=== PATIENT | female | born 1965 | race Caucasian/White ===

== ENCOUNTER 2017-07-21 17:14 | Inpatient (IN) | payer OTHER ==
[~2017-07-21] VITALS: Ht 165.1 cm; Wt 77.0 kg
[~2017-07-21 17:14] MED LIST: BP MED PO; CALCIUM 500 MG1 EACH PO; HYZAAR 50-121 TABLET PO; STRIBILD TABLE1 EACH PO
[2017-07-21 18:09] LABS: BASOPHIL (%) 0.2 % (0-1); EOSINOPHIL (%) 1.3 % (0-5); EOSINOPHIL COUNT 0.1 K/uL (0-0.3); HEMATOCRIT 33.3 % (36.0-46.0); HEMOGLOBIN 11.9 G/DL (11.9-15.5); IMMATURE GRANULOCYTE (%) 0.2 % (0.0-0.7); LYMPHOCYTE (%) 25.8 % (15-42); LYMPHOCYTE COUNT 1.2 K/uL (1.0-2.8); MCH 31.6 PG (29.0-34.0); MCHC 35.7 G/DL (30.0-36.0); MCV 88.3 FL (83-99); MONOCYTE COUNT 0.5 K/uL (0-0.8); NEUTROPHIL (%) 60.5 % (45-76); NEUTROPHIL COUNT 2.7 K/uL (1.8-6.4); PLATELET COUNT 156 K/uL (156-360); RBC DIS.WIDTH-CV 13.3 % (11.8-14.6); RED BLOOD COUNT 3.77 M/uL (3.80-5.20); WHITE BLOOD COUNT 4.5 K/uL (4.1-10.2)
[2017-07-21 18:17] LABS: CHLORIDE 107 mEq/L (99-109); POTASSIUM 3.2 mEq/L (3.7-5.4); SODIUM 138 mEq/L (136-147)
[2017-07-21 18:18] LABS: GLUCOSE 99 mg/dL (70-99)
[2017-07-21 18:22] LABS: CREATININE 7.7 mg/dL (0.6-1.3); GFR ESTIMATE (CALCULATED) 6 mL/min/
[2017-07-21 18:23] LABS: UREA NITROGEN (BUN) 58 mg/dL (9-23)
[2017-07-21 21:21] LABS: CREATINE KINASE 141 IU/L (1-294)
[2017-07-21] MEDS ORDERED: LOSARTAN-HCTZ1 EACH PO (21:26)
[2017-07-21] MEDS ORDERED: PROMETHAZINE HC25 M1 PO (21:26)
[2017-07-21] MEDS ORDERED: ATRIPLA TABLET1 EACH PO (21:27)
[2017-07-21] MEDS ORDERED: SPIRONOLACTONE25 MG PO (21:27)
[2017-07-21] MEDS ORDERED: RABEPRAZOLE SOD20 MG PO (21:27)
[2017-07-21 23:47] LABS: TOTAL PROTEIN 6.1 g/dL (6.4-8.3)
[2017-07-21 23:49] LABS: TOTAL BILIRUBIN 0.4 mg/dL (0.0-1.0)
[2017-07-21 23:50] LABS: ALKALINE PHOSPHATASE 85 IU/L (3-129)
[2017-07-21 23:53] LABS: ALT (GPT) 16 IU/L (3-49); AST (GOT) 30 IU/L (2-34); DIRECT BILIRUBIN 0.1 mg/dL (0.0-0.3)
[2017-07-21 23:54] LABS: URIC ACID 4.2 mg/dL (3.1-9.2)
[2017-07-21 23:56] LABS: APPEARANCE CLEAR ((CLEAR)); BILIRUBIN NEGATIVE; BLOOD SMALL; COLOR STRAW ((YELLOW)); GLUCOSE (STRIP) >=500; KETONES NEGATIVE; LEUKOCYTES NEGATIVE; NITRITE NEGATIVE; PROTEIN (STRIP) 100; SPECIFIC GRAVITY 1.003 (1.000-1.030); UROBILINOGEN 0.2 MG/DL (0.2-1.0)
[2017-07-22 00:08] LABS: BACTERIA RARE /HPF; EPITHELIAL CELLS RARE /HPF; MUCUS TRACE /LPF; RED BLOOD CELLS 0-5 /HPF (0-5); WHITE BLOOD CELLS 0-5 /HPF (0-5)
[2017-07-22 00:26] VITALS: BP 111/67
[2017-07-22 02:40] LABS: CHLORIDE 112 mEq/L (99-109); POTASSIUM 3.1 mEq/L (3.7-5.4); SODIUM 140 mEq/L (136-147)
[2017-07-22 02:42] LABS: GLUCOSE 98 mg/dL (70-99)
[2017-07-22 02:44] LABS: UR CREATININE CONCENTRATION 38.6 MG/DL
[2017-07-22 02:45] LABS: CREATININE 7.6 mg/dL (0.6-1.3); GFR ESTIMATE (CALCULATED) 6 mL/min/
[2017-07-22 02:46] LABS: UREA NITROGEN (BUN) 53 mg/dL (9-23)
[2017-07-22 06:41] LABS: HEMOGLOBIN 10.3 G/DL (11.9-15.5); MCH 31.6 PG (29.0-34.0); MCHC 35.5 G/DL (30.0-36.0); PLATELET COUNT 144 K/uL (156-360); RBC DIS.WIDTH-CV 13.4 % (11.8-14.6); RBC DIS.WIDTH-SD 43.5 % (39-53); RED BLOOD COUNT 3.26 M/uL (3.80-5.20); WHITE BLOOD COUNT 3.7 K/uL (4.1-10.2)
[2017-07-22 07:16] LABS: ALBUMIN 2.8 G/DL (3.2-4.8); CHLORIDE 113 MEQ/L (99-109); CREATININE 7.2 MG/DL (0.6-1.3); GFR ESTIMATE (CALCULATED) 6 mL/min/; GLUCOSE 97 mg/dL (70-99); PHOSPHORUS 3.6 mg/dL (2.5-4.9); POTASSIUM 3.7 MEQ/L (3.7-5.4); SODIUM 139 MEQ/L (136-147); UREA NITROGEN (BUN) 50 mg/dL (9-23)
[2017-07-22 08:23] VITALS: BP 116/72
[2017-07-22 13:41] LABS: URIC ACID 4.3 mg/dL (3.1-9.2)
[2017-07-22 15:29] VITALS: BP 121/70
[2017-07-22 22:59] VITALS: BP 128/72
[2017-07-23 07:01] LABS: HEMATOCRIT 28.8 % (36.0-46.0); MCH 31.2 PG (29.0-34.0); MCHC 34.7 G/DL (30.0-36.0); MCV 89.7 FL (83-99); PLATELET COUNT 143 K/uL (156-360); RBC DIS.WIDTH-CV 13.2 % (11.8-14.6); RBC DIS.WIDTH-SD 43.8 % (39-53); RED BLOOD COUNT 3.21 M/uL (3.80-5.20); WHITE BLOOD COUNT 3.3 K/uL (4.1-10.2)
[2017-07-23 07:23] LABS: ALBUMIN 2.9 G/DL (3.2-4.8); CHLORIDE 114 MEQ/L (99-109); CREATININE 7.3 MG/DL (0.6-1.3); GFR ESTIMATE (CALCULATED) 6 mL/min/; GLUCOSE 95 mg/dL (70-99); PHOSPHORUS 3.3 mg/dL (2.5-4.9); POTASSIUM 3.8 MEQ/L (3.7-5.4); SODIUM 142 MEQ/L (136-147); UREA NITROGEN (BUN) 41 mg/dL (9-23)
[2017-07-23 07:34] VITALS: BP 113/63
[2017-07-23 12:34] LABS: APPEARANCE SL.HAZY ((CLEAR)); BILIRUBIN NEGATIVE; BLOOD MODERATE; COLOR STRAW ((YELLOW)); GLUCOSE (STRIP) 150; KETONES NEGATIVE; LEUKOCYTES NEGATIVE; NITRITE NEGATIVE; PROTEIN (STRIP) 100; SPECIFIC GRAVITY 1.006 (1.000-1.030); UROBILINOGEN 0.2 MG/DL (0.2-1.0)
[2017-07-23 12:55] LABS: URINE TOTAL PROTEIN 132 MG/DL (0-10)
[2017-07-23 13:22] LABS: BACTERIA RARE /HPF; EPITHELIAL CELLS RARE /HPF; MUCUS TRACE /LPF; RED BLOOD CELLS 0-5 /HPF (0-5); WHITE BLOOD CELLS 0-5 /HPF (0-5)
[2017-07-23 16:17] VITALS: BP 114/62
[2017-07-24 00:41] VITALS: BP 141/76
[2017-07-24 06:23] LABS: INTER. NORMALIZED RATIO 1.1
[2017-07-24 06:42] LABS: C4 COMPLEMENT 15 MG/DL (10-40)
[2017-07-24 07:09] LABS: CHLORIDE 117 MEQ/L (99-109); CREATININE 7.6 MG/DL (0.6-1.3); GFR ESTIMATE (CALCULATED) 6 mL/min/; GLUCOSE 100 mg/dL (70-99); PHOSPHORUS 3.2 mg/dL (2.5-4.9); POTASSIUM 3.9 MEQ/L (3.7-5.4); SODIUM 145 MEQ/L (136-147); UREA NITROGEN (BUN) 36 mg/dL (9-23)
[2017-07-24 07:47] VITALS: BP 115/62
[2017-07-24 12:23] LABS: HEPATITIS B SURFACE ANTIGEN Nonreactive; HEPATITIS C ANTIBODY Nonreactive
[2017-07-24 12:24] LABS: HEPATITIS B SURFACE ANTIBODY Nonreactive
[2017-07-24 16:40] VITALS: BP 151/79
[2017-07-25] VITALS: BP 129/70
[2017-07-25 08:15] VITALS: BP 122/78
[2017-07-25 08:52] LABS: CHLORIDE 110 MEQ/L (99-109); GFR ESTIMATE (CALCULATED) 10 mL/min/; GLUCOSE 113 mg/dL (70-99); PHOSPHORUS 2.2 mg/dL (2.5-4.9); POTASSIUM 3.3 MEQ/L (3.7-5.4); SODIUM 142 MEQ/L (136-147); UREA NITROGEN (BUN) 22 mg/dL (9-23)
[2017-07-25 08:53] LABS: CREATININE 4.9 MG/DL (0.6-1.3)
[2017-07-25 09:15] LABS: BASOPHIL (%) 0.3 % (0-1); EOSINOPHIL (%) 0.8 % (0-5); HEMATOCRIT 27.8 % (36.0-46.0); HEMOGLOBIN 9.7 G/DL (11.9-15.5); LYMPHOCYTE (%) 23.4 % (15-42); LYMPHOCYTE COUNT 0.9 K/uL (1.0-2.8); MCH 31.1 PG (29.0-34.0); MCHC 34.9 G/DL (30.0-36.0); MCV 89.1 FL (83-99); MONOCYTE (%) 12.4 % (3-12); MONOCYTE COUNT 0.5 K/uL (0-0.8); NEUTROPHIL (%) 63.1 % (45-76); NEUTROPHIL COUNT 2.3 K/uL (1.8-6.4); PLATELET COUNT 148 K/uL (156-360); RBC DIS.WIDTH-CV 13.3 % (11.8-14.6); RBC DIS.WIDTH-SD 43.2 % (39-53); RED BLOOD COUNT 3.12 M/uL (3.80-5.20); WHITE BLOOD COUNT 3.6 K/uL (4.1-10.2)
[2017-07-25 10:32] LABS: 24 HR VOLUME 1600 MLS; URINE UREA NITROGEN 3088 MG/24 HR
[2017-07-25 15:48] VITALS: BP 104/60
[2017-07-26 00:07] VITALS: BP 156/85
[2017-07-26 06:54] LABS: CHLORIDE 111 MEQ/L (99-109); CREATININE 4.8 MG/DL (0.6-1.3); GFR ESTIMATE (CALCULATED) 10 mL/min/; GLUCOSE 95 mg/dL (70-99); PHOSPHORUS 2.5 mg/dL (2.5-4.9); SODIUM 143 MEQ/L (136-147); UREA NITROGEN (BUN) 21 mg/dL (9-23)
[2017-07-26 08:24] VITALS: BP 115/78
[2017-07-26 15:48] VITALS: BP 147/91
[2017-07-26 18:09] LABS: MYELOPEROXIDASE ANTIBODY (MPO) <1.0 AI (<1.0); PROTEINASE-3 ANTIBODY+ <1.0 AI (<1.0)
[2017-07-26 20:03] LABS: 24 HR VOLUME 1600 MLS
[2017-07-27] VITALS (7 sets, daily range): BP systolic 121–170; BP diastolic 66–90
[2017-07-27 05:39] LABS: BASOPHIL (%) 0.6 % (0-1); EOSINOPHIL (%) 1.7 % (0-5); EOSINOPHIL COUNT 0.1 K/uL (0-0.3); HEMATOCRIT 30.9 % (36.0-46.0); HEMOGLOBIN 10.8 G/DL (11.9-15.5); IMMATURE GRANULOCYTE (%) 0.3 % (0.0-0.7); LYMPHOCYTE (%) 28.1 % (15-42); MCH 31.6 PG (29.0-34.0); MCV 90.4 FL (83-99); MONOCYTE (%) 14.3 % (3-12); MONOCYTE COUNT 0.5 K/uL (0-0.8); PLATELET COUNT 144 K/uL (156-360); RBC DIS.WIDTH-CV 13.2 % (11.8-14.6); RBC DIS.WIDTH-SD 43.4 % (39-53); RED BLOOD COUNT 3.42 M/uL (3.80-5.20); WHITE BLOOD COUNT 3.6 K/uL (4.1-10.2)
[2017-07-27 05:55] LABS: ALBUMIN 3.3 G/DL (3.2-4.8); CHLORIDE 111 MEQ/L (99-109); POTASSIUM 3.8 MEQ/L (3.7-5.4); SODIUM 140 MEQ/L (136-147)
[2017-07-27 06:01] LABS: CREATININE 5.5 MG/DL (0.6-1.3); GFR ESTIMATE (CALCULATED) 9 mL/min/; GLUCOSE 96 mg/dL (70-99); PHOSPHORUS 2.6 mg/dL (2.5-4.9); UREA NITROGEN (BUN) 28 mg/dL (9-23)
[2017-07-27 16:00] LABS: HEMATOCRIT 27.6 % (36.0-46.0); HEMOGLOBIN 9.8 G/DL (11.9-15.5); MCHC 35.5 G/DL (30.0-36.0); MCV 90.2 FL (83-99); PLATELET COUNT 138 K/uL (156-360); RBC DIS.WIDTH-CV 13.3 % (11.8-14.6); RBC DIS.WIDTH-SD 43.9 % (39-53); RED BLOOD COUNT 3.06 M/uL (3.80-5.20); WHITE BLOOD COUNT 4.6 K/uL (4.1-10.2)
[2017-07-28 06:54] LABS: ALBUMIN 3.6 G/DL (3.2-4.8); CHLORIDE 108 MEQ/L (99-109); CREATININE 5.7 MG/DL (0.6-1.3); GFR ESTIMATE (CALCULATED) 8 mL/min/; GLUCOSE 100 mg/dL (70-99); PHOSPHORUS 2.9 mg/dL (2.5-4.9); SODIUM 139 MEQ/L (136-147); UREA NITROGEN (BUN) 30 mg/dL (9-23)
[2017-07-28 07:18] LABS: BASOPHIL (%) 0.3 % (0-1); EOSINOPHIL (%) 1.8 % (0-5); EOSINOPHIL COUNT 0.1 K/uL (0-0.3); HEMATOCRIT 34.5 % (36.0-46.0); IMMATURE GRANULOCYTE (%) 0.5 % (0.0-0.7); LYMPHOCYTE (%) 24.8 % (15-42); MCH 31.7 PG (29.0-34.0); MCHC 34.8 G/DL (30.0-36.0); MONOCYTE (%) 10.5 % (3-12); MONOCYTE COUNT 0.4 K/uL (0-0.8); NEUTROPHIL (%) 62.1 % (45-76); NEUTROPHIL COUNT 2.5 K/uL (1.8-6.4); PLATELET COUNT 173 K/uL (156-360); RBC DIS.WIDTH-CV 13.4 % (11.8-14.6)
[2017-07-28 07:36] LABS: RED BLOOD COUNT 3.79 M/uL (3.80-5.20)
[2017-07-28 07:55] VITALS: BP 125/79
[2017-07-28 18:26] VITALS: BP 120/84
[2017-07-29 04:50] LABS: Cryoglobulin, Qualitative None Detected (None Detected)
[2017-07-29 06:13] LABS: BASOPHIL (%) 0.2 % (0-1); EOSINOPHIL (%) 1.5 % (0-5); EOSINOPHIL COUNT 0.1 K/uL (0-0.3); HEMATOCRIT 32.4 % (36.0-46.0); HEMOGLOBIN 11.2 G/DL (11.9-15.5); IMMATURE GRANULOCYTE (%) 0.2 % (0.0-0.7); LYMPHOCYTE (%) 23.3 % (15-42); MCH 30.6 PG (29.0-34.0); MCHC 34.6 G/DL (30.0-36.0); MCV 88.5 FL (83-99); MONOCYTE COUNT 0.5 K/uL (0-0.8); NEUTROPHIL (%) 62.8 % (45-76); NEUTROPHIL COUNT 2.6 K/uL (1.8-6.4); PLATELET COUNT 179 K/uL (156-360); RBC DIS.WIDTH-CV 13.1 % (11.8-14.6); RBC DIS.WIDTH-SD 42.4 % (39-53); RED BLOOD COUNT 3.66 M/uL (3.80-5.20); WHITE BLOOD COUNT 4.1 K/uL (4.1-10.2)
[2017-07-29 06:40] LABS: ALBUMIN 3.6 G/DL (3.2-4.8); CHLORIDE 111 MEQ/L (99-109); CREATININE 5.4 MG/DL (0.6-1.3); GFR ESTIMATE (CALCULATED) 9 mL/min/; GLUCOSE 96 mg/dL (70-99); SODIUM 141 MEQ/L (136-147); UREA NITROGEN (BUN) 33 mg/dL (9-23)
[2017-07-29 07:40] VITALS: BP 133/81
[2017-07-29 16:26] VITALS: BP 147/87
[2017-07-29 23:03] VITALS: BP 120/64
[2017-07-30 06:25] LABS: BASOPHIL (%) 0.2 % (0-1); EOSINOPHIL (%) 1.2 % (0-5); EOSINOPHIL COUNT 0.1 K/uL (0-0.3); HEMATOCRIT 31.5 % (36.0-46.0); HEMOGLOBIN 10.9 G/DL (11.9-15.5); IMMATURE GRANULOCYTE (%) 0.2 % (0.0-0.7); LYMPHOCYTE (%) 24.3 % (15-42); MCH 31.1 PG (29.0-34.0); MCHC 34.6 G/DL (30.0-36.0); MCV 89.7 FL (83-99); MONOCYTE (%) 13.6 % (3-12); MONOCYTE COUNT 0.6 K/uL (0-0.8); NEUTROPHIL (%) 60.5 % (45-76); NEUTROPHIL COUNT 2.5 K/uL (1.8-6.4); PLATELET COUNT 170 K/uL (156-360); RBC DIS.WIDTH-CV 13.2 % (11.8-14.6); RED BLOOD COUNT 3.51 M/uL (3.80-5.20); WHITE BLOOD COUNT 4.2 K/uL (4.1-10.2)
[2017-07-30 06:44] LABS: ALBUMIN 3.5 G/DL (3.2-4.8); CHLORIDE 112 MEQ/L (99-109); CREATININE 5.3 MG/DL (0.6-1.3); GFR ESTIMATE (CALCULATED) 9 mL/min/; GLUCOSE 97 mg/dL (70-99); PHOSPHORUS 2.9 mg/dL (2.5-4.9); POTASSIUM 3.9 MEQ/L (3.7-5.4); SODIUM 141 MEQ/L (136-147); UREA NITROGEN (BUN) 35 mg/dL (9-23)
[2017-07-30 09:15] VITALS: BP 125/82
[2017-07-30 17:03] VITALS: BP 138/83
[2017-07-30 23:37] VITALS: BP 122/76
[2017-07-31 05:48] LABS: BASOPHIL (%) 0.5 % (0-1); EOSINOPHIL (%) 2.1 % (0-5); EOSINOPHIL COUNT 0.1 K/uL (0-0.3); HEMATOCRIT 29.8 % (36.0-46.0); HEMOGLOBIN 10.1 G/DL (11.9-15.5); IMMATURE GRANULOCYTE (%) 0.5 % (0.0-0.7); LYMPHOCYTE (%) 23.4 % (15-42); LYMPHOCYTE COUNT 0.9 K/uL (1.0-2.8); MCH 30.5 PG (29.0-34.0); MCHC 33.9 G/DL (30.0-36.0); MONOCYTE (%) 12.5 % (3-12); MONOCYTE COUNT 0.5 K/uL (0-0.8); NEUTROPHIL COUNT 2.3 K/uL (1.8-6.4); PLATELET COUNT 174 K/uL (156-360); RBC DIS.WIDTH-CV 13.2 % (11.8-14.6); RBC DIS.WIDTH-SD 43.7 % (39-53); RED BLOOD COUNT 3.31 M/uL (3.80-5.20); WHITE BLOOD COUNT 3.8 K/uL (4.1-10.2)
[2017-07-31 07:48] VITALS: BP 139/81
[2017-07-31 08:33] LABS: CHLORIDE 114 MEQ/L (99-109); POTASSIUM 4.2 MEQ/L (3.7-5.4); SODIUM 142 MEQ/L (136-147)
[2017-07-31 08:38] LABS: GFR ESTIMATE (CALCULATED) 10 mL/min/; GLUCOSE 96 mg/dL (70-99); UREA NITROGEN (BUN) 34 mg/dL (9-23)
[2017-07-31 15:59] VITALS: BP 130/79
[2017-08-01 01:02] VITALS: BP 130/77
[2017-08-01 06:41] LABS: BASOPHIL (%) 0.3 % (0-1); EOSINOPHIL (%) 1.6 % (0-5); EOSINOPHIL COUNT 0.1 K/uL (0-0.3); HEMATOCRIT 28.6 % (36.0-46.0); HEMOGLOBIN 9.8 G/DL (11.9-15.5); IMMATURE GRANULOCYTE (%) 0.5 % (0.0-0.7); LYMPHOCYTE (%) 26.3 % (15-42); MCH 31.2 PG (29.0-34.0); MCHC 34.3 G/DL (30.0-36.0); MCV 91.1 FL (83-99); MONOCYTE (%) 13.8 % (3-12); MONOCYTE COUNT 0.5 K/uL (0-0.8); NEUTROPHIL (%) 57.5 % (45-76); NEUTROPHIL COUNT 2.1 K/uL (1.8-6.4); PLATELET COUNT 157 K/uL (156-360); RBC DIS.WIDTH-CV 13.3 % (11.8-14.6); RBC DIS.WIDTH-SD 43.9 % (39-53); RED BLOOD COUNT 3.14 M/uL (3.80-5.20); WHITE BLOOD COUNT 3.7 K/uL (4.1-10.2)
[2017-08-01 07:12] LABS: CHLORIDE 117 MEQ/L (99-109); CREATININE 4.4 MG/DL (0.6-1.3); GFR ESTIMATE (CALCULATED) 11 mL/min/; GLUCOSE 97 mg/dL (70-99); POTASSIUM 4.1 MEQ/L (3.7-5.4); SODIUM 144 MEQ/L (136-147); UREA NITROGEN (BUN) 28 mg/dL (9-23)
[2017-08-01 07:35] VITALS: BP 130/80
[2017-08-01] MEDS ORDERED: AMLODIPINE BESYL5 MG PO (12:25)
== END 2017-08-01 14:52 | disposition home or self-care (01) | DRG 682 ==
LOC: EME 17:14 → EDOF 22:19 → 5EAST 22:19 → ENRESERV 22:20 → 5EAST 23:47
PROVIDERS: Emergency Medicine; Hospitalist; Internal Medicine
PROC: 05HM33Z Insertion of Infusion Device into Right Internal Jugular Vein, Percutaneous Approach (ICD-10-PCS; principal; 2017-07-24)
PROC: B543ZZA Ultrasonography of Right Jugular Veins, Guidance (ICD-10-PCS; principal; 2017-07-24)
PROC: 5A1D70Z Performance of Urinary Filtration, Intermittent, Less than 6 Hours Per Day (ICD-10-PCS; 2017-07-24)
PROC: 0TB13ZX Excision of Left Kidney, Percutaneous Approach, Diagnostic (ICD-10-PCS; 2017-07-27)
DX: N17.0 Acute kidney failure with tubular necrosis (principal); B20 Human immunodeficiency virus [HIV] disease; E87.8 Other disorders of electrolyte and fluid balance, not elsewhere classified; E87.6 Hypokalemia; E86.0 Dehydration; E87.2 Acidosis; E83.39 Other disorders of phosphorus metabolism; I10 Essential (primary) hypertension; I77.6 Arteritis, unspecified; K57.30 Diverticulosis of large intestine without perforation or abscess without bleeding; R76.8 Other specified abnormal immunological findings in serum; Z80.3 Family history of malignant neoplasm of breast; Z82.49 Family history of ischemic heart disease and other diseases of the circulatory system; Z83.3 Family history of diabetes mellitus
CPT/HCPCS: 71010; 71020; 74176; 77012; 80048; 80048 91; 80069; 80076; 81003; 81050; 82436; 82550; 82570; 82575; 82595 90; 83735; 83930; 83935; 84100; 84133; 84156; 84300; 84540; 84550; 85025; 85027; 85610; 85651; 86021 90; 86038; 86160; 86235; 86334; 86335; 86430; 86706; 86803; 87340; 88305; 88313 90; 88346 90; 88348 90; 89190; 96361; 96375; 99281; 99285; C1751; C1752; J1170; J1644; J2405; J3010; J7030; J7120; Q0169